=== PATIENT | male | born 1940 | race Caucasian/White ===

== ENCOUNTER → 2018-07-19 | Outpatient (CLI) | payer MEDICARE ==
[~2018-07-19] MED LIST: ALPRAZOLAM0.5 M1 PO; AMLODIPINE10 MG PO; ASPIRIN81 M1 PO; BENAZEPRIL40 MG PO; BUPROPION HCL150 M1 PO; CBD OIL T; COREG25 MG PO; CYMBALTA20 M1 PO; FENOFIBRATE160 MG PO; FISH OIL CONC1000 M2 PO; FLOMAX0.4 MG PO; GLIPIZIDE10 M2 PO; GLUCOPHAGE1000 MG PO; KLOR-CON M2020 MEQ PO; LASIX40 MG PO; LEVOXYL0.112 MG PO; LOSARTAN-HCTZ1 EAC1 PO; METFORMIN ER500 MG PO; METFORMIN1000 MG PO; PERCOCET 325 MG1 TA2 PO; PERSANTINE50 MG PO; PRAVASTATIN SOD80 MG PO; TERAZOSIN HCL5 M1 PO; TERAZOSIN5 MG PO; VITAMIN D31000 UNI1 PO; XANAX0.5 MG PO; Zofran4 MG PO
== END | disposition home or self-care (01) ==
LOC: US 13:00
DX: I65.23 Occlusion and stenosis of bilateral carotid arteries (principal); E11.9 Type 2 diabetes mellitus without complications; I10 Essential (primary) hypertension

== ENCOUNTER → 2018-10-01 | Outpatient (CLI) | payer MEDICARE ==
--- NOTE | ~2018-10-01 | ST ---
[place], [place] EXERCISE STRESS TEST REPORT NAME: TIFFANI HINES JR [facility] #: [id number] UNIT #: [id number] ROOM: DOCTOR: NAHUM EASTMAN MD BIRTHDATE: [birth year] DOS: 10/01/2018 PHARMACOLOGICAL NUCLEAR STRESS TEST REASON FOR TESTING: Syncope and shortness of breath. DESCRIPTION OF PROCEDURE: The patient received rapid infusion of regadenoson 0.4 mg IV followed by saline flush. The patient experienced numbness feeling. The patient had a transient second degree AV block and no ST-T changes were noted. There was an appropriate heart rate response to the infusion. Isotope was injected 40 seconds later. IMPRESSION: Well tolerated pharmacological stress test. Please see the separate imaging report for further details of the stress test results. Nahum Eastman MD CM:STRESS:EXERCISE STRESS TEST REPORT [id number] NAHUM EASTMAN MD
--- NOTE | 2018-10-01 10:00 | NUR ---
INFORMED CONSENT OBTAINED FOR LEXISCAN NUCLEAR STRESS TEST WITH DR. EASTMAN. RESTING EKG SINUS BRADYCARDIA WITH A RESTING HR OF 58 WITH BP OF 132/68. LUNGS CLEAR WITH SPO2 OF 98% ON ROOM AIR. PT COMPLETED A 1:00 LEXISCAN PROTOCOL RECEIVING LEXISCAN 0.4 MG IV OVER 10 SECONDS. HAD NO CHEST PAIN BUT DID C/O "NUMBNESS" THAT WAS RELIEVED IN RECOVERY. HAD NO ST CHANGES. DID HAVE PAUSE WITH 2:1 BLOCK WITH HR OF 46. HAD A PEAK HR OF 70 WITH BP OF 120/50. LAST RECOVERY HR OF 67 WITH BP OF 140/68. AWAITING SCANNING IN STABLE CONDITION.
== END | disposition home or self-care (01) ==
LOC: CARD 01:27
DX: E11.9 Type 2 diabetes mellitus without complications (principal); R42 Dizziness and giddiness; R06.02 Shortness of breath; R55 Syncope and collapse

== ENCOUNTER → 2019-05-25 | Outpatient (CLI) | payer MEDICARE ==
[2019-05-25 16:05] LABS: CREATININE 1.46 mg/dL (0.70-1.30)
== END | disposition home or self-care (01) ==
LOC: LAB 15:27 → CT 16:00
PROVIDERS: Radiology Diagnostic Radiology
DX: R42 Dizziness and giddiness (principal); I10 Essential (primary) hypertension; E11.9 Type 2 diabetes mellitus without complications

== ENCOUNTER → 2019-06-17 | Outpatient (CLI) | payer MEDICARE | END | disposition home or self-care (01) | LOC: MRI 10:39 | DX: I67.82 Cerebral ischemia (principal); G31.9 Degenerative disease of nervous system, unspecified; R42 Dizziness and giddiness ==

== ENCOUNTER → 2019-10-18 | Outpatient (CLI) | payer MEDICARE | END | disposition home or self-care (01) | LOC: CARD 10-17 09:00 | DX: E11.9 Type 2 diabetes mellitus without complications (principal) ==

== ENCOUNTER → 2023-02-05 | Outpatient (CLI) | payer MEDICARE ==
[~2023-02-05] MED LIST changes: +ALDACTONE25 MG PO; +ASPIRIN CHILDRE81 MG PO; +B12 ACTIVE1000 MCG PO; +ENTRESTO 97 MG1 EACH PO; +FINASTERIDE5 M1 PO; +HYDRALAZINE HC100 MG PO; +IMDUR SA30 MG PO; +JARDIANCE10 MG PO; +K-TAB20 MEQ PO; +LASIX20 MG PO; +METOPROLOL SUCC50 M1 PO; +TERAZOSIN HCL2 M1 PO; +TOPROL XL25 MG PO; +VIBRA-TAB100 MG PO
[2023-02-05 10:48] LABS: BASO % 0.9 % (0.0-1.0); EOS # 0.1 10*3/uL (0.0-0.4); EOS % 1.7 % (1.0-4.0); LYMPH # 0.9 10*3/uL (1.3-4.4); LYMPH % 20.2 % (27.0-41.0); MEAN CELL VOLUME 97.4 fl (80.0-94.0); MEAN CORPUSCULAR HGB CONC 30.8 g/dl (33.0-37.0); MEAN PLATELET VOLUME 12.1 fl (9.6-12.3); MONO # 0.4 10*3/uL (0.1-1.0); MONO % 8.8 % (3.0-9.0); NEUT # 3.2 10*3/uL (2.3-7.9); NEUT % 68.4 % (47.0-73.0); PLATELET COUNT AUTOMATED 156 10*3/uL (130-400); RED CELL DISTRI WIDTH 13.6 % (0-14.5); WHITE BLOOD COUNT 4.7 10*3/uL (4.8-10.8)
[2023-02-05 11:17] LABS: FREE T4 1.41 ng/dl (0.89-1.76); POTASSIUM 3.7 mmol/L (3.4-5.1); TOTAL PROTEIN 6.5 gm/dL (6.0-8.0); VITAMIN D, 25-HYDROXY 38.3 ng/mL (30-100)
== END | disposition home or self-care (01) ==
LOC: LAB 09:57
PROVIDERS: Internal Medicine; ATTEND Internal Medicine
DX: Z12.5 Encounter for screening for malignant neoplasm of prostate (principal); Z13.0 Encounter for screening for diseases of the blood and blood-forming organs and certain disorders involving the immune mechanism; Z13.1 Encounter for screening for diabetes mellitus; Z13.21 Encounter for screening for nutritional disorder; Z13.220 Encounter for screening for lipoid disorders; Z13.228 Encounter for screening for other metabolic disorders; Z13.29 Encounter for screening for other suspected endocrine disorder; Z13.6 Encounter for screening for cardiovascular disorders; Z13.89 Encounter for screening for other disorder; Z13.9 Encounter for screening, unspecified; I10 Essential (primary) hypertension; E55.9 Vitamin D deficiency, unspecified

== ENCOUNTER → 2023-02-12 | Outpatient (CLI) | payer MEDICARE | END | disposition home or self-care (01) | LOC: LAB 12:41 → US 13:00 | PROVIDERS: ATTEND Internal Medicine | DX: Z13.9 Encounter for screening, unspecified (principal); D64.9 Anemia, unspecified; R94.4 Abnormal results of kidney function studies; N28.1 Cyst of kidney, acquired ==

== ENCOUNTER → 2023-05-07 | Outpatient (CLI) | payer MEDICARE ==
[2023-05-07 13:35] LABS: BASO % 0.4 % (0.0-1.0); EOS # 0.1 10*3/uL (0.0-0.4); EOS % 1.4 % (1.0-4.0); HEMATOCRIT 39.5 % (42.0-52.0); LYMPH # 0.7 10*3/uL (1.3-4.4); LYMPH % 13.7 % (27.0-41.0); MEAN CELL VOLUME 97.1 fl (80.0-94.0); MEAN CORPUSCULAR HGB 29.5 pg (27.0-31.0); MEAN CORPUSCULAR HGB CONC 30.4 g/dl (33.0-37.0); MONO # 0.4 10*3/uL (0.1-1.0); MONO % 8.6 % (3.0-9.0); NEUT # 3.7 10*3/uL (2.3-7.9); NEUT % 75.7 % (47.0-73.0); PLATELET COUNT AUTOMATED 175 10*3/uL (130-400); RED BLOOD COUNT 4.07 10*6/uL (4.50-5.90); RED CELL DISTRI WIDTH 14.4 % (0-14.5); WHITE BLOOD COUNT 4.9 10*3/uL (4.8-10.8)
[2023-05-07 13:59] LABS: POTASSIUM 3.7 mmol/L (3.4-5.1); TOTAL PROTEIN 6.9 gm/dL (6.0-8.0)
== END | disposition home or self-care (01) ==
LOC: LAB 13:16
PROVIDERS: ATTEND Urology
DX: D40.0 Neoplasm of uncertain behavior of prostate (principal); R53.83 Other fatigue

== ENCOUNTER → 2023-08-05 | Outpatient (CLI) | payer MEDICARE ==
[~2023-08-05] MED LIST changes: +ESOMEPRAZOLE MA40 M1 PO; +RAMELTEON8 MG PO; +VALSARTAN80 MG PO
== END | disposition home or self-care (01) ==
LOC: RAD 11:08
PROVIDERS: ATTEND Internal Medicine
DX: J90 Pleural effusion, not elsewhere classified (principal); R05.9 Cough, unspecified; M25.78 Osteophyte, vertebrae

== ENCOUNTER 2023-08-06 09:06 | Emergency (ER) | payer MEDICARE ==
[~2023-08-06] VITALS: Ht 175.2 cm; Wt 79.4 kg
[~2023-08-06 09:06] MED LIST changes: -ESOMEPRAZOLE MA40 M1 PO; -RAMELTEON8 MG PO; -VALSARTAN80 MG PO
[2023-08-06 09:37] LABS: BASO % 0.7 % (0.0-1.0); EOS # 0.2 10*3/uL (0.0-0.4); EOS % 3.3 % (1.0-4.0); HEMATOCRIT 40.8 % (42.0-52.0); LYMPH # 0.7 10*3/uL (1.3-4.4); MEAN CELL VOLUME 98.8 fl (80.0-94.0); MEAN CORPUSCULAR HGB CONC 30.4 g/dl (33.0-37.0); MEAN PLATELET VOLUME 11.2 fl (9.6-12.3); MONO # 0.4 10*3/uL (0.1-1.0); MONO % 8.7 % (3.0-9.0); NEUT # 3.2 10*3/uL (2.3-7.9); NEUT % 71.1 % (47.0-73.0); PLATELET COUNT AUTOMATED 164 10*3/uL (130-400); RED BLOOD COUNT 4.13 10*6/uL (4.50-5.90); RED CELL DISTRI WIDTH 13.2 % (0-14.5); WHITE BLOOD COUNT 4.5 10*3/uL (4.8-10.8)
[2023-08-06] MEDS ORDERED: VALSARTAN80 MG PO (09:41)
[2023-08-06] MEDS ORDERED: RAMELTEON8 MG PO (09:49)
[2023-08-06] MEDS ORDERED: ESOMEPRAZOLE MA40 M1 PO (09:51)
[2023-08-06 09:58] LABS: ALKALINE PHOSPHATASE 138 U/L (46-116); BUN 18 mg/dl (9-23); CHLORIDE 108 mmol/L (98-107); POTASSIUM 3.6 mmol/L (3.4-5.1); SGPT/ALT < 7 U/L (5-49); TOTAL PROTEIN 6.7 gm/dL (6.0-8.0)
== END 2023-08-06 15:10 | disposition short-term general hospital (02) ==
LOC: ED 09:06
PROVIDERS: Internal Medicine
DX: I11.0 Hypertensive heart disease with heart failure (principal); I50.9 Heart failure, unspecified; K22.2 Esophageal obstruction; E11.9 Type 2 diabetes mellitus without complications; R11.0 Nausea; F41.9 Anxiety disorder, unspecified; F32.A Depression, unspecified; Z88.8 Allergy status to other drugs, medicaments and biological substances; Z88.5 Allergy status to narcotic agent; Z98.890 Other specified postprocedural states; Z87.442 Personal history of urinary calculi